=== PATIENT | female | born 1965 | race African-American/Black ===

== ENCOUNTER 2017-10-23 09:49 | Day surgery (SDC) | payer OTHER ==
[2017-10-23] MEDS: D5 LR 1000 ML 1,000 ML IV ONE (10:05)
[2017-10-23] MEDS ORDERED: DIPRIVAN VIAL 20 ML ONE (10:56)
[2017-10-23 11:36] VITALS: BP 144/72
== END 2017-10-23 11:30 | disposition home or self-care (01) ==
LOC: SURG1 09:49
PROVIDERS: ATTEND Internal Medicine Gastroenterology
PROC: 0DB68ZX Excision of Stomach, Via Natural or Artificial Opening Endoscopic, Diagnostic (ICD-10-PCS; principal; 2017-10-23 13:30)
PROC: 0DB88ZX Excision of Small Intestine, Via Natural or Artificial Opening Endoscopic, Diagnostic (ICD-10-PCS; principal; 2017-10-23 13:30)
PROC: 0DJ08ZZ Inspection of Upper Intestinal Tract, Via Natural or Artificial Opening Endoscopic (ICD-10-PCS; principal; 2017-10-23 13:30)
DX: R10.13 Epigastric pain (principal); R11.2 Nausea with vomiting, unspecified; K29.60 Other gastritis without bleeding; K44.9 Diaphragmatic hernia without obstruction or gangrene; K22.8 Other specified diseases of esophagus
CPT/HCPCS: A4217; J3490; J7120